=== PATIENT | male | born 1960 | race Caucasian/White ===

== ENCOUNTER 2017-01-14 06:18 | Inpatient (IN) | payer OTHER ==
[~2017-01-14] VITALS: Ht 172.7 cm; Wt 119.3 kg
[2017-01-14] VITALS (8 sets, daily range): BP systolic 115–138; BP diastolic 70–87
[2017-01-14] MEDS ORDERED: NEEDLELESS EST SET LARGE BORE 1 EA INFUS.SET MC ONE (07:03)
[2017-01-14] MEDS ORDERED: SECONDARY IV SET 1 EA INFUS.SET MC ONE ×2 (07:03→17:28)
[2017-01-14] MEDS ORDERED: IV LR 1000 ML 1,000 ML ONE (07:03)
[2017-01-14] MEDS ORDERED: CEFAZOLIN SODIUM/DEXTROSE,ISO 50 ML IV ONE (07:03)
[2017-01-14] MEDS ORDERED: IV SET PRIMARY 1 EA INFUS.SET MC ONE (07:03)
[2017-01-14] MEDS ORDERED: RANI150C4 PO (09:27)
[2017-01-14] MEDS ORDERED: BUPIVACAINE MPF 0.5% W/EPI INJ 30 ML VIAL ONE (09:51)
[2017-01-14] MEDS ORDERED: BACITRACIN 50000 UNITS/VIAL ONE (09:51)
[2017-01-14] MEDS ORDERED: KETOROLAC TROMETHAMINE INJ 30 MG/ML VIAL ONE (09:51)
[2017-01-14] MEDS ORDERED: MORPHINE SULFATE/PF 10 MG/10ML (1MG/ML) AMPUL ONE (10:48)
[2017-01-14] MEDS ORDERED: MIDAZOLAM HCL 2 MG/2ML VIAL ONE ×2 (10:49→12:11)
[2017-01-14] MEDS ORDERED: TRANEXAMIC ACID 3,000 MG in SODIUM CHLORIDE IRRIG SOLUTION 70 ML IR ONE (11:30)
--- NOTE | 2017-01-14 13:17 | NUR ---
RN ADMITTING NOTES PATIENT ARRIVED TO UNIT FROM OR. VITAL SIGNS STABLE. PATIENT HAS SANTOYO, CLEAR AND YELLOW URINE. IV SITE IS INTACT AND POTENT. NO SIGNS AND SYMPTOMS OF DISTRESS. PAIN LEVEL 3/10. ORDERS RECEIVED. WILL CONTINUE TO ASSESS AND MONITOR PATIENT
[2017-01-14] MEDS ORDERED: BISACODYL SUPP (10 MG) 10 MG/SUPP.RECT SUPP.RECT RC PRN (14:00)
[2017-01-14] MEDS ORDERED: SENNOSIDES 8.6 MG TABLET PO PRN (14:00)
[2017-01-14] MEDS ORDERED: DOCUSATE SODIUM 250 MG CAPSULE PO PRN (14:00)
[2017-01-14] MEDS ORDERED: ONDANSETRON HCL/PF 4 MG/2 ML VIAL IV PRN (14:00)
[2017-01-14] MEDS ORDERED: IV SET PRIMARY PUMP SET 1 EA INFUS.SET MC ONE (15:18)
--- NOTE | 2017-01-14 15:30 | NUR ---
RN NOTES SPOKE WITH ASHISH KITCHEN REGARDING PATIENT PAIN LEVEL. NEW ORDERS RECEIVED
[2017-01-14] MEDS: IV D5/0.45 NACL 1,000 ML IV PRN (15:44)
[2017-01-14] MEDS ORDERED: HYDROMORPHONE 1 MG/1 ML DISP.SYRIN IV PRN (16:00)
[2017-01-14] MEDS ORDERED: HYDROCODONE/APAP 5/325MG 1 EACH TABLET PO PRN ×2 (16:00)
[2017-01-14] MEDS: ANCEF 1 GM/50 ML D5W IV SCH ×2 (17:29)
--- NOTE | 2017-01-14 18:30 | NUR ---
DR PELLETIER AT BEDSIDE. PAIN MEDICATION RECONCILED AND NEW ORDERS RECEIVED AND CARRIED OUT
[2017-01-14] MEDS ORDERED: HYDROCODONE/APAP 10/325MG 1 EA TABLET PO PRN (19:00)
[2017-01-14] MEDS: HYDROMORPHONE 1 MG/1 ML DISP.SYRIN IV PRN ×2 (19:11→22:50)
--- NOTE | 2017-01-14 20:00 | NUR ---
MS PRINTER OPERATOR INITIAL NOTES RECEIVED PT IN BED AWAKE AND ALERT WATCHING TV AT THIS TIME, WITHOUT ANY DISCOMFORT NOTED AT THIS TIME. HE STILL WITH IVF D51/2 NS AT 125ML.HR INFUSING AT RIGHT HAND GAUGE 20 PATENT AND INTACT. DENIES ANY PAIN AT THIS TIME BUT REQUESTED HIS PAIN MEDS LATER . TOLD HIM THE NEXT SCHEDULE AND THE OTHER PAIN MEDS THAT HE HAVE ALTERNATE . LEFT KNEE ON IMMOBILIZER AT THIS TIME. SANTOYO TO GRAVITY AND DRAINING WELL. KEPT HIM COMFORTABLE AT ALL TIMES. PLACE CALL LIGHT AT REACH. WILL CONTINUE TO MONITOR.
--- NOTE | 2017-01-14 21:30 | NUR ---
COLLECTION SPECIALIST/NOTES PAIN MGT PT COMPLAINT OF LEFT KNEE PAIN 5/10 NORCO TABLET GIVEN ORDERED. ICE PACK ALSO APPLIED TO AFFECTED AREA. KEPT HIM COMFORTABLE AT ALL TIMES. WILL CONTINUE TO MONITOR.
--- NOTE | 2017-01-14 22:35 | NUR ---
TRADE RECRUITER/NOTE- RE-ASSESSMENT CHECKED PT HE'S AWAKE AND WATCHING TV AND HE'S TELLING ME THAT NORCO DOESN'T HELPED MUCH PAIN ON AND OFF LIKE 04/11 , AND ASKING FOR PAIN SHOT. SPOKE TO HIM THAT ANOTHER NURSE WILL BE ADMINISTERED HIS PAIN MEDS AND HE STATED "OK ". ICE PACK STILL ON PLACE. NO SIGNS OF ANY ACUTE DISTRESS NOTED.
--- NOTE | 2017-01-14 22:50 | NUR ---
MS RELL NOTES PAIN MGT. DILAUDID 1MG ADMINISTERED BY NURSE KAT/RN GUIDO IVP ORDERED. WILL RE- ASSESS LATER. IVF STILL INFUSING. WILL CONTINUE TO MONITOR. PLACE CALL LIGHT AT REACH.
--- NOTE | 2017-01-15 00:10 | NUR ---
AUDITING CONTROL CLERK NOTES RE-ASSESSMENT CHECKED PT HE STILL AWAKE AND WATCHING TV, PAIN SUBSIDE AND PAIN SHOT HELPED MORE. HE ALSO ASK FOR HIS SLEEP MEDICATION IF HE HAVE ONE. OFFER AMBIEN AND HE STATES OK.
[2017-01-15] MEDS: IV D5/0.45 NACL 1,000 ML IV PRN ×2 (00:11→16:30)
[2017-01-15] MEDS: ZOLPIDEM TARTRATE 5 MG TABLET PO PRN ×2 (00:14→22:53)
[2017-01-15] MEDS: ANCEF 1 GM/50 ML D5W IV SCH ×2 (01:37)
--- NOTE | 2017-01-15 03:05 | NUR ---
TEA ROOM MANAGER/NOTES PT WOKE UP AND PAIN STARTED, OFFERED NORCO AND OXY BUT HE ASK FOR HIS DILAUDID INSTEAD. 1 MG IVP GIVEN. WILL CONTINUE TO MONITOR.
[2017-01-15] MEDS: oxyCODONE IR immediate release 5 MG CAPSULE PO PRN ×4 (06:48→18:25)
--- NOTE | 2017-01-15 07:00 | NUR ---
VISUAL SPECIALIST/CLOSING NOTES PT AWAKE AND ALERT SEEN BY DR ABERNATHY AND REMOVED HIS IMMOBILIZER. DR BOWER CALLED ALSO TO GIVE OXYCODONE NOW TO FIND OUT WHICH PAIN MEDS THAT WORK FOR HIM. IVF STILL INFUSING AND SANTOYO DRAINING WELL AND PT REQUESTED TO HAVE SANTOYO OUT LATER BEFORE PT STARTED. SLEPT WELL AND ALL DUE MEDS GIVEN AND ALL NEEDS MET. ENDORSE TO AM NURSE FOR CONTINUITY OF CARE. ENDORSE ALSO TO AM NURSE TO FF UP THE CPM MACHINE FROM PHYSICAL THERAPY.
[2017-01-15 08:00] VITALS: BP 129/88
[2017-01-15] MEDS: ASPIRIN EC 325 MG TABLET.DR PO SCH (08:17)
[2017-01-15] MEDS: NICOTINE PATCH (21MG) 21 MG PATCH.TD24 TD SCH (08:17)
[2017-01-15] MEDS: HYDROMORPHONE 1 MG/1 ML DISP.SYRIN IV PRN ×2 (08:17→12:00)
--- NOTE | 2017-01-15 08:24 | NUR ---
rounds to patient. Needs met at this time. C/O pain 8.10. too early for oxycontin dose. Given am meds. Neurovascular check wnl. Clean, dry, intact dressing in place.
--- NOTE | 2017-01-15 08:53 | NUR ---
IVF complete at this time. Tolerating fluids well. Denies nausea. Hep lock . Complains about discomfort of catheter. Will ask MD to remove brito catheter.
[2017-01-15] MEDS ORDERED: HYDROMORPHONE 1 MG/1 ML DISP.SYRIN SQ ONE (13:05)
[2017-01-15] MEDS ORDERED: MAG HYDROX/AL HYDROX/SIMETH 30 ML UDC PO PRN (13:30)
[2017-01-15] MEDS ORDERED: oxyCODONE IR immediate release 5 MG CAPSULE PO PRN (13:30)
[2017-01-15] MEDS ORDERED: diphenhydrAMINE HCL 25 MG CAPSULE PO PRN (13:30)
[2017-01-15] MEDS ORDERED: MAGNESIUM HYDROXIDE 30 ML UDC PO PRN (13:30)
--- NOTE | 2017-01-15 14:26 | NUR ---
PATIENT HAS PAIN IN LEG ON CPM MACHINE. GOING PER PHYSICIAN ORDERS. WILL MONITOR AND GIVE MEDS INDICATED.
--- NOTE | 2017-01-15 14:53 | NUR ---
POSITIVE FEELING, WARMTH, NO DRAINAGE NO TINGLING ON OPERATED EXTREMITY REGARDING NEUROVASCULAR CHECKS. SITE OF INCISION CLEAN AND INTACT. ICE APPLIED. PRN MED NOW.
--- NOTE | 2017-01-15 14:57 | NUR ---
YARELIS Aldrich/Julissa 1000ML LEFT IN BAG. Addendum: 01/15/17 at 1457 by CRISTIN CRUZ RN Amended: Links added.
--- NOTE | 2017-01-15 14:58 | NUR ---
POST SANTOYO REMOVAL 1045 AM 1000 ML VOID TO URINAL.
[2017-01-15 16:00] VITALS: BP 130/75
[2017-01-15] MEDS: HYDROMORPHONE 1 MG/1 ML DISP.SYRIN SQ PRN ×2 (16:53→21:23)
[2017-01-15] MEDS: DOCUSATE SODIUM 100 MG CAPSULE PO SCH (18:03)
[2017-01-15] MEDS: ACETAMINOPHEN 325 MG TABLET PO PRN (18:32)
--- NOTE | 2017-01-15 19:25 | NUR ---
MS/RN NOTES RECEIVED PT. LYING IN BED. AWAKE, ALERT AND ORIENTED X4. BREATHING EVEN AND UNLABORED ON ROOM AIR. NO SOB OR RESPIRATORY DISTRESS NOTED AT THIS TIME. PT. COMPLAINING OF PAIN 6/10 IN HIS LEFT LEG. PT. STATED HE RECEIVED PAIN MEDICATION RECENTLY AND HIS PAIN IS ONLY SLIGHTLY IMPROVED SINCE THEN. WILL CONTINUE TO MONITOR AND ADMINISTER PAIN MEDICATION ORDERED. PT. WITH RIGHT HAND 20 GAUGE IV SALINE LOCK PRESENT, PATENT AND INTACT. PT. WITH LEFT LEG SURGICAL DRESSING PRESENT, CLEAN, DRY AND INTACT. BED IN LOWEST POSITION, CALL LIGHT WITHIN REACH, WILL CONTINUE TO MONITOR.
--- NOTE | 2017-01-15 19:51 | NUR ---
HANDOFF REPORT FOR NOC NURSE. DISCUSSION ABOUT PAIN AND PLAN FOR BENZODIAZEPENE AT HS RECOMMENDED BY DOCTOR BOWER. ALTERNATING 3 HOUR DOSES OF DILAUDED AND OXYCONTIN TO MANAGE PAIN. SITE ICED AND PATIENT HAD COMPLETED THREE HOURS OF HIS CPM THIS DAY.
[2017-01-15 20:00] VITALS: BP 148/93
[2017-01-15] MEDS: PANTOPRAZOLE 40 MG TABLET.DR PO SCH (21:22)
[2017-01-16] MEDS: HYDROMORPHONE 1 MG/1 ML DISP.SYRIN SQ PRN ×4 (01:18→20:03)
[2017-01-16] MEDS: oxyCODONE IR immediate release 5 MG CAPSULE PO PRN ×3 (05:41→13:23)
--- NOTE | 2017-01-16 06:45 | NUR ---
MS/RN NOTES PT. LYING IN BED RESTING. BREATHING EVEN AND UNLABORED ON ROOM AIR. NO SOB OR RESPIRATORY DISTRESS NOTED AT THIS TIME. PT. COMPLAINING OF PAIN 6/10 IN HIS LEFT KNEE. PAIN MEDICATION PREVIOUSLY ADMINISTERED TO PT. WILL CONTINUE TO MONITOR PT. PAIN AND ENDORSE TO DAYSHIFT NURSE. PT. WITH RIGHT HAND 20 GAUGE IV SALINE LOCK PRESENT, PATENT AND INTACT. PT. WITH LEFT LEG SURGICAL DRESSING PRESENT, CLEAN, DRY AND INTACT. ALL PT. NEEDS MET. BED IN LOWEST POSITION, CALL LIGHT WITHIN REACH, WILL ENDORSE TO DAYSHIFT NURSE FOR CONTINUITY OF CARE.
--- NOTE | 2017-01-16 07:30 | NUR ---
RN MS NOTES RECEIVED PATIENT IN BED, A/O X 4 , IN NO ACUTE DISTRESS, DENIES SOB. COMPLAINS OF PAIN ON L KNEE, STATES THAT HE IS GETTING SPAMS ON THE RIGHT LEG THAT START FROM THE THIGH AND SHOOTS DOWN TO THE KNEE AREA. IV LINE PATENT NO S/S OF INFILTRATION NOTED. ALL NEEDS MET, KEPT CLEAN AND DRY.
[2017-01-16 08:00] VITALS: BP 142/85
[2017-01-16] MEDS: ASPIRIN EC 325 MG TABLET.DR PO SCH (09:02)
[2017-01-16] MEDS: IV D5/0.45 NACL 1,000 ML IV PRN (09:02)
[2017-01-16] MEDS: DOCUSATE SODIUM 100 MG CAPSULE PO SCH ×2 (09:02→17:26)
[2017-01-16] MEDS: NICOTINE PATCH (21MG) 21 MG PATCH.TD24 TD SCH (09:02)
[2017-01-16] MEDS: HYDROMORPHONE 1 MG/1 ML DISP.SYRIN IV PRN ×2 (09:03→12:06)
[2017-01-16 11:55] LABS: BASOPHILS # (AUTO) 0.1 /CMM (0.0-0.2); BASOPHILS % (AUTO) 0.6 % (0.0-2.0); EOSINOPHILS # (AUTO) 0.2 /CMM (0.0-0.7); EOSINOPHILS % (AUTO) 2.1 % (0.0-6.0); HEMATOCRIT 41 % (39-51); HEMOGLOBIN 13.9 g/dL (13.5-17.5); LYMPHOCYTES # (AUTO) 1.7 /CMM (0.8-4.8); LYMPHOCYTES % (AUTO) 15.4 % (20.0-44.0); MEAN CORPUSCULAR HEMOGLOBIN 32 PG (26.0-33.0); MEAN CORPUSCULAR HGB CONC 34 g/dl (31.0-36.0); MEAN CORPUSCULAR VOLUME 92 fL (80-96); MONOCYTES # (AUTO) 0.9 /CMM (0.1-1.30); MONOCYTES % (AUTO) 7.9 % (2.0-12.0); NEUTROPHILS # (AUTO) 8.3 /CMM (1.8-8.9); PLATELET COUNT (AUTO) 162 /CMM (150-450); RDW COEFFICIENT OF VARIATION 13.3 (11.5-15.0); WHITE BLOOD COUNT (AUTO) 11.2 K/uL (4.3-11.0)
[2017-01-16 12:04] LABS: CALCIUM, SERUM 8.5 mg/dL (8.5-10.1); CREATININE 0.7 mg/dL (0.6-1.3); POTASSIUM 3.6 mmol/L (3.5-5.1)
--- NOTE | 2017-01-16 14:25 | NUR ---
RN MS NOTES PATIENT IN BED, NO APPARENT DISTRESS NOTED, NO SOB NOTED. WORKED WITH PT, ONLY TOLERATED CPM AT 30. PATIENT STATES PAIN LEVEL 9/10 ON LEFT KNEE THAT IS NOT RELIEVED BY MEDICATION. PATIENT STATES THAT PAIN LEVEL ONLY DROPS TO ABOUT 8/10 AFTER PAIN MEDS, MD AWARE.
--- NOTE | 2017-01-16 14:27 | NUR ---
RN MS NOTES SPOKE WITH DR BOWER REGARDING PAIN MEDICATION NOT BEING EFFECTIVE. AWARE OF PAIN LEVEL OF 8/10 AFTER PAIN MEDICATION, NO NEW ORDERS.
--- NOTE | 2017-01-16 14:40 | NUR ---
RN MS NOTES PATIENT SEEN AND EVALUATED BY DR BOWER, WITH NEW ORDERS. ORDERS NOTED AND CARRIED OUT. DR BOWER CHANGED THE DILAUDID ORDER TO 1.5ML [id number] SQ.
[2017-01-16] MEDS ORDERED: oxyCODONE HCL SR 20MG TAB.SR.12H PO ONE (14:43)
[2017-01-16] MEDS ORDERED: oxyCODONE HCL SR 10MG TAB.SR.12H PO ONE (14:55)
[2017-01-16 16:00] VITALS: BP_SYST 119; BP_SYST 125; BP_DIAS 69; BP_DIAS 74
[2017-01-16] MEDS: ACETAMINOPHEN 325 MG TABLET PO PRN (18:52)
--- NOTE | 2017-01-16 18:58 | NUR ---
RN MS CLOSING NOTES PATIENT IN NO DISTRESS, DENIES SOB. STATED HE HAD A HEAD ACHE GAVE TYLENOL 650 MG. AMBULATED WITH PT TOLERATED WELL, TOLERATED CPM MACHINE. PATIENT STATED THAT PAID MEDICATIONS WERE NOT EFFECTIVE, INFORMED DR BOWER. DR BOWER MADE SOME CHANGES TO THE PAIN MEDICATION. PATIENT STATED PAIN LEVEL OF 7/10 AFTER SQ DILAUDID. PATENTS PAIN LEVEL WAS AT 8 DURING SHIFT BEFORE THAT. ALL NEEDS MET, KEPT CLEAN AND DRY.
[2017-01-16 20:00] VITALS: BP 133/80
--- NOTE | 2017-01-16 20:03 | NUR ---
MS VULCANIZER INITIAL NOTES PT SEEN IN BED AWAKE AND ALERT AND COMPLAINING OF PAIN ON HIS LEFT KNEE AFTER AMBULATING TO THE RESTROOM. DILAUDID 1.5 MG SQ ORDERED PER PT REQUESTED. KEPT HIM COMFORTABLE AT ALL TIMES. HE ALSO AWARE OF HIS OXY IR ROUTINE THAT DUE AT 9 PM. WILL CONTINUE TO MONITOR.
[2017-01-16] MEDS: PANTOPRAZOLE 40 MG TABLET.DR PO SCH (21:57)
[2017-01-16] MEDS: oxyCODONE HCL SR 10MG TAB.SR.12H PO SCH (21:58)
--- NOTE | 2017-01-16 21:58 | NUR ---
PETROLEUM ENGINEERING PROFESSOR NOTES ROUTINE MEDS GIVEN ORDERED. KEPT HIM WARM AND COMFORTABLE AT ALL TIMES. PLACE CALL LIGHT AT REACH. WILL CONTINUE TO MONITOR.
[2017-01-17] MEDS: HYDROMORPHONE 1 MG/1 ML DISP.SYRIN SQ PRN ×2 (00:13→09:48)
--- NOTE | 2017-01-17 07:01 | NUR ---
MS BEAD WIRE INSULATOR CLOSING NOTES PT RESTING COMFORTABLY IN BED WITHOUT ANY ACUTE DISTRESS NOTED. STABLE GUIDO THE NIGHT AND PAIN SUBSIDE AFTER PAIN MED GIVEN . ALL DUE MEDS GIVEN AND ALL NEEDS MET. KEPT HIM WARM AND COMFORTABLE AT ALL TIMES. DRESSING CHANGED LAST NIGHT BY DR KITCHEN.ENDORSE TO AM NURSE FOR CONTINUITY OF CARE.
[2017-01-17 07:11] LABS: BASOPHILS % (AUTO) 0.2 % (0.0-2.0); EOSINOPHILS # (AUTO) 0.3 /CMM (0.0-0.7); EOSINOPHILS % (AUTO) 2.4 % (0.0-6.0); HEMATOCRIT 42 % (39-51); HEMOGLOBIN 14.4 g/dL (13.5-17.5); LYMPHOCYTES # (AUTO) 1.8 /CMM (0.8-4.8); LYMPHOCYTES % (AUTO) 15.6 % (20.0-44.0); MEAN CORPUSCULAR HEMOGLOBIN 32 PG (26.0-33.0); MEAN CORPUSCULAR HGB CONC 34 g/dl (31.0-36.0); MEAN CORPUSCULAR VOLUME 93 fL (80-96); MONOCYTES # (AUTO) 0.9 /CMM (0.1-1.30); MONOCYTES % (AUTO) 7.8 % (2.0-12.0); NEUTROPHILS # (AUTO) 8.6 /CMM (1.8-8.9); PLATELET COUNT (AUTO) 167 /CMM (150-450); RDW COEFFICIENT OF VARIATION 13.1 (11.5-15.0); RED BLOOD CELL COUNT(AUTO) 4.55 MIL/uL (4.5-6.0); WHITE BLOOD COUNT (AUTO) 11.6 K/uL (4.3-11.0)
--- NOTE | 2017-01-17 07:20 | NUR ---
MS/RN AM NOTES RECEIVED PATIENT IN BED, AWAKE, ALERT, WITHOUT SOB, NO DISTRESS NOTED, C/O LEFT KNEE PAIN 04/11, PAIN MEDICATION PRN ADMINISTERED BY COMMUTATOR PRESSER NURSE, NO RESPIRATORY DISTRESS NOTED, ON RA O2 SATURATION 95%. IV PERIPHERAL LINE ON RIGHT HAND INTACT, PATENT. BED IN LOW POSITION, 2 SR UP FOR SAFETY, COMFORTABLE IN THE BED, WITH CALL LIGHT WITHIN EASY REACH. WILL CONTINUE TO MONITOR AND ADDRESS THE PAIN ACCORDINGLY
[2017-01-17 07:28] LABS: CREATININE 0.7 mg/dL (0.6-1.3); POTASSIUM 4.1 mmol/L (3.5-5.1)
[2017-01-17 08:00] VITALS: BP 134/97
[2017-01-17] MEDS: DOCUSATE SODIUM 100 MG CAPSULE PO SCH (08:05)
[2017-01-17] MEDS: NICOTINE PATCH (21MG) 21 MG PATCH.TD24 TD SCH (08:06)
[2017-01-17] MEDS: ASPIRIN EC 325 MG TABLET.DR PO SCH (08:06)
[2017-01-17] MEDS: oxyCODONE HCL SR 10MG TAB.SR.12H PO SCH (08:06)
--- NOTE | 2017-01-17 09:49 | NUR ---
MS/RN NOTES PATIENT IS C/O LEFT KNEE PAIN 04/11, NOT RELIEVED FROM OXY, RESPIRATION EVEN, UNLABORED, 16, NO DISTRESS, NOTED 02 SAT 96% RA. DILAUDID ADMINISTERED 1.5 MG SQ, WILL CONTINUE TO ASSESS
[2017-01-17 10:00] VITALS: BP 134/97
[2017-01-17] MEDS ORDERED: HYDR1DIS2 SQ (10:04)
[2017-01-17] MEDS ORDERED: ACET325T53 PO (10:04)
[2017-01-17] MEDS ORDERED: NICO1PAT28 TD (10:04)
[2017-01-17] MEDS ORDERED: Bisacodyl RC (10:04)
[2017-01-17] MEDS ORDERED: Aspirin PO (10:04)
[2017-01-17] MEDS ORDERED: Oxycodone Hcl PO (10:04)
[2017-01-17] MEDS ORDERED: DOCU-25 PO (10:04)
--- NOTE | 2017-01-17 13:35 | NUR ---
MS/HYDRAULIC HAMMER OPERATOR NOTES DISCHARGED PATIENT TO [facility] W/C BY AMBULANCE IN STABLE CONDITION, VITAL SIGNS WITHIN NORMAL RANGE, NO SOB, DENIES CHEST PAIN, C/O LEFT KNEE PAIN 12/10. REPORT GIVEN TO CLARISSA (NOAH) FROM [facility]. INFORMED TO F/U WITH DR. ABERNATHY IN 1-2 WEEKS. CPM MACHINE INSTRUCTION GIVEN WELL FOR LEFT KNEE. DISCHARGE CARE INSTRUCTION GIVEN TO THE PATIENT, LEFT WITH ALL HIS BELONGINGS AND VALUABLES
== END 2017-01-17 13:35 | DRG 470 ==
LOC: DS 06:18 → MED 14:16
PROVIDERS: ADMIT Specialist; ATTEND Internal Medicine
PROC: 0SBD4ZZ Excision of Left Knee Joint, Percutaneous Endoscopic Approach (ICD-10-PCS; principal; 2017-01-14 11:15)
PROC: 0SRD0L9 Replacement of Left Knee Joint with Medial Unicondylar Synthetic Substitute, Cemented, Open Approach (ICD-10-PCS; principal; 2017-01-14 11:15)
DX: M17.12 Unilateral primary osteoarthritis, left knee (principal); E44.0 Moderate protein-calorie malnutrition; Z68.41 Body mass index [BMI] 40.0-44.9, adult; M22.40 Chondromalacia patellae, unspecified knee; S83.289A Other tear of lateral meniscus, current injury, unspecified knee, initial encounter; Z96.652 Presence of left artificial knee joint; K21.9 Gastro-esophageal reflux disease without esophagitis; E66.01 Morbid (severe) obesity due to excess calories; D72.829 Elevated white blood cell count, unspecified; F17.210 Nicotine dependence, cigarettes, uncomplicated; X58.XXXA Exposure to other specified factors, initial encounter; Y92.9 Unspecified place or not applicable
CPT/HCPCS: 36415; 80048-TC; 85025-TC; 86850-TC; 86921-TC; 87081-TC; 88305-TC; 88311-TC; 97001-TC; 97110-TC; 97116-TC; 97530-TC; 97760-TC; A4217; A6402; C1713; J0690; J1100; J1170; J1885; J2250; J2274; J2405; J2704; J3490; J7060; J7120; Z7610